=== PATIENT | female | born 1980 | race Caucasian/White ===

== ENCOUNTER 2018-04-04 18:56 | Emergency (ER) | payer OTHER ==
[2018-04-04 19:19] VITALS: BP 132/80
[2018-04-04 19:38] LABS: BILIRUBIN,URINE NEGATIVE (NEGATIVE); GLUCOSE, URINE (UA) NEGATIVE (NEGATIVE); KETONES,URINE (UA) NEGATIVE (NEGATIVE); LEUKOCYTE ESTERASE, URINE SMALL (NEGATIVE); NITRITE,URINE NEGATIVE (NEGATIVE); OCCULT BLOOD,URINE LARGE (NEGATIVE); PROTEIN,URINE 30 mg/dL (NEGATIVE); UROBILINOGEN,URINE 0.2 (NORMAL) E.U./dL (NORMAL)
[2018-04-04 19:52] LABS: CLARITY,URINE HAZY (CLEAR)
[2018-04-04 19:53] LABS: BACTERIA,URINE Many /HPF (None Seen); RBC,URINE TNTC /HPF (0-5); SQUAMOUS EPITHELIAL CELL,UR RARE Squamous (<= Few)
[2018-04-04] MEDS ORDERED: SULFAMETH/TRIMETH DS 800/160 MG TABLET PO STA (20:15)
[2018-04-04] MEDS ORDERED: PHENAZOPYRIDINE 100 MG TABLET PO STA (20:15)
--- NOTE | 2018-04-04 20:18 | ED Physician Documentation ---
PD HPI FEMALE - Stated complaint Stated Complaint: ABD PX - Chief complaint Chief Complaint: UTI - History obtained from History obtained from: Patient - History of Present Illness Timing - onset: How many days ago (3) Timing - details: Gradual onset, Still present Associated symptoms: Pelvic pain. No: Fever Similar symptoms before: Has not had sx before Recently seen: Not recently seen - Additional information Additional information: Patient is a 38 year old female with no significant past medical history who is presenting to the emergency department for dysuria, increased frequency and back pain. patient states that the symptoms have been going on for the last few days and have become progressively worse. Review of Systems Ten Systems: 10 systems reviewed and negative Constitutional: denies: Fever, Chills GI: reports: Abdominal Pain. denies: Nausea, Vomiting : reports: Dysuria, Frequency PD PAST MEDICAL HISTORY - Present Medications Home Medications: Ambulatory Orders Medication Instructions Recorded Confirmed Cyclobenzaprine [Flexeril] 10 04/04/18 Fluconazole [Diflucan] 150 mg PO ONCE #1 tablet 04/04/18 Phenazopyridine HCl [Pyridium] 200 mg PO TID PRN #6 tablet 04/04/18 Sulfamethox/Trimeth 800/160 1 each PO BID #14 tablet 04/04/18 [Bactrim Ds 800/160] traMADol [Ultram] 50 04/04/18 - Allergies Allergies/Adverse Reactions: Allergies Allergy/AdvReac Type Severity Reaction Status Date / Time No Known Drug Allergies Allergy Verified 04/04/18 19:19 PD ED PE NORMAL - Vitals Vital signs reviewed: Yes - General General: Alert and oriented X 3 - HEENT HEENT: Atraumatic - Cardiac Cardiac: RRR - Respiratory Respiratory: No respiratory distress - Abdomen Abdomen: Non distended - Derm Derm: Normal color - Extremities Extremities: No deformity - Neuro Eye Opening: Spontaneous - Psych Psych: Normal mood PD ED PE EXPANDED - Abdomen Abdomen: Tender to palpation, Suprapubic - Back Back: CVA TTP left Results - Vitals Vitals: Vital Signs - 24 hr 04/04/18 19:15 Temperature 36.8 C Heart Rate 90 Respiratory 16 Rate Blood Pressure 132/80 H O2 Saturation 100 Oxygen O2 Source Room air - Labs Labs: Laboratory Tests 04/04/18 04/04/18 Unknown Unknown Urine Color YELLOW Urine Clarity HAZY Urine pH 6.0 Ur Specific [place] 1.010 1.010 Urine Protein 30 H Urine Glucose (UA) NEGATIVE Urine Ketones NEGATIVE Urine Occult Blood LARGE H Urine Nitrite NEGATIVE Urine Bilirubin NEGATIVE Urine Urobilinogen 0.2 (NORMAL) Ur Leukocyte Esterase SMALL H Urine RBC TNTC H Urine WBC >25 H Ur Squamous Epith Cells RARE Squamous Urine Bacteria Many H Ur Microscopic Review INDICATED Urine Culture Comments INDICATED Urine HCG, Qual NEGATIVE PD MEDICAL DECISION MAKING - ED course Complexity details: reviewed old records, reviewed results, re-evaluated patient , considered differential, d/w patient ED course: Patient was seen and examined at bedside. urine was collected and was consistent with cystitis. patient was treated with pyridium and bactrim. patient required no further work up at this time and was stable for discharge with outpatient follow up. Departure - Departure Disposition: 01 Home, Self Care Clinical Impression: Cystitis Condition: Good Instructions: ED UTI Cystitis Female Follow-Up: Perla Leal MD [Primary Care Provider] - Prescriptions: Fluconazole [Diflucan] 150 mg PO ONCE #1 tablet Phenazopyridine HCl [Pyridium] 200 mg PO TID PRN #6 tablet PRN Reason: dysuria Sulfamethox/Trimeth 800/160 [Bactrim Ds 800/160] 1 each PO BID #14 tablet Comments: Your symptoms today are being caused by a urinary tract infection. You had your first dose of antibiotics and will need to be on them for the next week. You should stay well hydrated and increase your fluid intake. You may return to the emergency department at any time for new, worsening or uncontrollable symptoms. Discharge Date/Time: 04/04/18 20:23
[2018-04-04 20:20] LABS: HCG UR QUAL NEGATIVE
== END 2018-04-04 20:23 | disposition home or self-care (01) ==
LOC: ED 18:56
DX: N30.90 Cystitis, unspecified without hematuria (principal)
CPT/HCPCS: 81001; 81025; 87086; 87181; 99282; 99283; A9270; 81003

== ENCOUNTER 2019-08-15 00:52 | Outpatient (CLI) | payer OTHER | END 2019-08-15 00:53 | disposition EMS.NT | LOC: EMS 00:52 | PROVIDERS: ATTEND Surgery | DX: M54.2 Cervicalgia (principal); Y04.8XXA Assault by other bodily force, initial encounter ==

== ENCOUNTER 2019-11-30 14:30 | Emergency (ER) | payer OTHER ==
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
[2019-11-30] MEDS ORDERED: KETOROLAC 30 MG/ML VIAL IVP STA (15:06)
[2019-11-30] MEDS ORDERED: SODIUM CHLORIDE 0.9% 1,000 ML IV ONE (15:06)
[2019-11-30] MEDS ORDERED: diphenhydrAMINE INJ 50 MG/ML VIAL IVP STA (15:07)
[2019-11-30] MEDS ORDERED: METOCLOPRAMIDE 10 MG/2 ML VIAL IVP STA (15:07)
[2019-11-30] MEDS ORDERED: fentaNYL 100 MCG/2 ML VIAL IVP STA (15:08)
[2019-11-30] MEDS ORDERED: CYCLOBENZAPRINE 10 MG TABLET PO STA (15:41)
[2019-11-30 16:00] VITALS: BP 116/76
== END 2019-11-30 16:00 | disposition home or self-care (01) ==
LOC: ED 14:30
DX: G43.909 Migraine, unspecified, not intractable, without status migrainosus (principal); M54.2 Cervicalgia; M25.511 Pain in right shoulder; G89.29 Other chronic pain
CPT/HCPCS: 96361; 96374; 96375; 99281; 99285; A9270; J1200; J2765

== ENCOUNTER 2019-12-05 21:29 | Emergency (ER) | payer OTHER ==
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
[2019-12-05 22:22] LABS: BASOPHILS # (AUTO) 0.1 10^3/uL (0.0-0.1); BASOPHILS % (AUTO) 0.8 %; EOSINOPHILS # (AUTO) 0.1 10^3/uL (0.0-0.7); EOSINOPHILS % (AUTO) 1.6 %; HGB - HEMOGLOBIN 12.8 g/dL (12.0-16.0); LYMPHOCYTES % (AUTO) 27.1 %; MEAN CORPUSCULAR HEMOGLOBIN 30.8 pg (27.0-31.0); MEAN CORPUSCULAR VOLUME 90.6 fL (81.0-99.0); MEAN PLATELET VOLUME 9.1 fL (7.9-10.8); MONOCYTES # (AUTO) 0.5 10^3/uL (0.0-1.0); MONOCYTES % (AUTO) 6.1 %; NEUTROPHILS # (AUTO) 4.7 10^3/uL (1.5-6.6); NEUTROPHILS % (AUTO) 64.1 %; PLT - PLATELET COUNT 353 10^3/uL (130-450); RED BLOOD COUNT 4.16 10^6/uL (4.20-5.40); RED CELL DISTRIBUTION WIDTH 11.9 % (12.0-15.0); WHITE BLOOD COUNT 7.4 x10^3/uL (4.8-10.8)
[2019-12-05] MEDS: HYDROmorphone 2 MG/ML VIAL IVP STA (22:23)
[2019-12-05] MEDS: KETOROLAC 30 MG/ML VIAL IVP STA (22:23)
[2019-12-05] MEDS: PROMETHAZINE INJ 25 MG in SODIUM CHLORIDE 0.9% 50 ML IV STA (22:23)
[2019-12-05] MEDS: SODIUM CHLORIDE 0.9% 1,000 ML IV STA (22:26)
[2019-12-05 22:29] LABS: CALCIUM 9.1 mg/dL (8.5-10.3); CREATININE 0.9 mg/dL (0.4-1.0)
[2019-12-06] MEDS: DEXAMETHASONE 10 MG/ML VIAL IVP STA (00:09)
[2019-12-06] MEDS: oxyCODONE/ACET 5/325 Prepack 4 PO STA (00:11)
[2019-12-06 00:31] VITALS: BP 120/77
== END 2019-12-06 00:30 | disposition home or self-care (01) ==
LOC: ED 21:29
DX: M54.12 Radiculopathy, cervical region (principal); G43.909 Migraine, unspecified, not intractable, without status migrainosus; R11.2 Nausea with vomiting, unspecified; Z87.820 Personal history of traumatic brain injury; Z79.899 Other long term (current) drug therapy
CPT/HCPCS: 36415; 80048; 85025; 96365; 96375; 99284

== ENCOUNTER 2020-04-17 11:48 | Emergency (ER) | payer OTHER ==
--- NOTE | 2020-04-17 12:07 | ED Physician Documentation ---
PD HPI FEMALE - Stated complaint Stated Complaint: FEM - Chief complaint Chief Complaint: UTI - History obtained from History obtained from: Patient - History of Present Illness Timing - onset: How many weeks ago (3) Timing - duration: Weeks (3) Timing - details: Gradual onset, Still present, Waxing and waning Associated symptoms: Dysuria (tried cranberry pills and azo, lots of fluids. Had some improvement at times, but not resolved.). No: Fever, Vaginal discharge, Genital sore/lesion Similar symptoms before: Diagnosis (UTI) Review of Systems Constitutional: denies: Fever, Chills, Myalgias Nose: denies: Rhinorrhea / runny nose, Congestion Throat: denies: Sore throat Respiratory: denies: Cough : reports: Dysuria, Frequency. denies: Discharge, Irregular menses Skin: denies: Rash Musculoskeletal: denies: Back pain PD PAST MEDICAL HISTORY - Past Medical History Cardiovascular: None Respiratory: None Neuro: Migraines Musculoskeletal: Other - Present Medications Home Medications: Ambulatory Orders Medication Instructions Recorded Confirmed Cyclobenzaprine [Flexeril] 10 04/04/18 Fluconazole [Diflucan] 150 mg PO ONCE #1 tablet 04/04/18 Phenazopyridine HCl [Pyridium] 200 mg PO TID PRN #6 tablet 04/04/18 Sulfamethox/Trimeth 800/160 1 each PO BID #14 tablet 04/04/18 [Bactrim Ds 800/160] traMADol [Ultram] 50 04/04/18 Cyclobenzaprine [Flexeril] 10 mg PO TID PRN #20 tablet 11/30/19 Ondansetron Odt [Zofran] 4 mg TL Q6H PRN #10 tablet 11/30/19 Oxycodone HCl/Acetaminophen 1 - 2 each PO Q6H PRN #14 tablet 12/06/19 [Percocet 5-325 mg Tablet] Promethazine [Phenergan] 25 mg PO Q6H PRN #10 tab 12/06/19 Fluconazole [Diflucan] 150 mg PO Q3D #2 tablet 04/17/20 Phenazopyridine HCl [Pyridium] 100 mg PO TID PRN #15 tablet 04/17/20 Sulfamethox/Trimeth 800/160 1 each PO BID #14 tablet 04/17/20 [Bactrim Ds 800/160] - Allergies Allergies/Adverse Reactions: Allergies Allergy/AdvReac Type Severity Reaction Status Date / Time No Known Drug Allergies Allergy Verified 04/17/20 12:00 - Social History Does the pt smoke?: No Smoking Status: Never smoker PD ED PE NORMAL - Vitals Vital signs reviewed: Yes - General General: Alert and oriented X 3, No acute distress, Well developed/nourished - Cardiac Cardiac: RRR, No murmur - Respiratory Respiratory: Clear bilaterally - Abdomen Abdomen: Soft, Non tender, Non distended - Female Female : Deferred - Back Back: No CVA TTP - Derm Derm: Normal color, Warm and dry Results - Vitals Vitals: Vital Signs - 24 hr 04/17/20 04/17/20 11:58 13:04 Temperature 35.7 C L 36.9 C Heart Rate 106 H 87 Respiratory 16 18 Rate Blood Pressure 146/92 H 128/82 H O2 Saturation 99 98 Oxygen O2 Source Room air - Labs Labs: Laboratory Tests 04/17/20 04/17/20 12:00 12:00 Urine Color YELLOW Urine Clarity SL. CLOUDY Urine pH 6.0 Ur Specific [place] <=1.005 <=1.005 Urine Protein NEGATIVE Urine Glucose (UA) NEGATIVE Urine Ketones NEGATIVE Urine Occult Blood MODERATE H Urine Nitrite NEGATIVE Urine Bilirubin NEGATIVE Urine Urobilinogen 0.2 (NORMAL) Ur Leukocyte Esterase LARGE H Urine RBC 6-10 H Urine WBC >25 H Ur Squamous Epith Cells RARE Squamous Urine Bacteria Few Ur Microscopic Review INDICATED Urine Culture Comments INDICATED Urine HCG, Qual NEGATIVE PD MEDICAL DECISION MAKING - ED course Complexity details: reviewed results, considered differential Departure - Departure Disposition: 01 Home, Self Care Clinical Impression: Cystitis, Dysuria Condition: Stable Record reviewed to determine appropriate education?: Yes Instructions: ED UTI Cystitis Female Follow-Up: Bernardino Maldonado MD [Primary Care Provider] - Prescriptions: Fluconazole [Diflucan] 150 mg PO Q3D #2 tablet Phenazopyridine HCl [Pyridium] 100 mg PO TID PRN #15 tablet PRN Reason: Abdominal Pain Sulfamethox/Trimeth 800/160 [Bactrim Ds 800/160] 1 each PO BID #14 tablet Comments: Stay well-hydrated. Tylenol or ibuprofen if needed for discomfort or pains. Bactrim antibiotic twice daily for a week. Phenazopyridine as needed for discomfort of urination. Recheck if not improving well over the next 2 to 3 days. Return if worsening. The urine culture should result in a couple of days and will call you if we need to modify the antibiotic choice based on that. Discharge Date/Time: 04/17/20 13:04
[2020-04-17 12:09] LABS: BILIRUBIN,URINE NEGATIVE (NEGATIVE); GLUCOSE, URINE (UA) NEGATIVE (NEGATIVE); KETONES,URINE (UA) NEGATIVE (NEGATIVE); LEUKOCYTE ESTERASE, URINE LARGE (NEGATIVE); NITRITE,URINE NEGATIVE (NEGATIVE); OCCULT BLOOD,URINE MODERATE (NEGATIVE); PROTEIN,URINE NEGATIVE (NEGATIVE); UROBILINOGEN,URINE 0.2 (NORMAL) E.U./dL (NORMAL)
[2020-04-17 12:11] LABS: CLARITY,URINE SL. CLOUDY (CLEAR)
[2020-04-17 12:21] LABS: HCG UR QUAL NEGATIVE
[2020-04-17 12:23] LABS: BACTERIA,URINE Few /HPF (None Seen); SQUAMOUS EPITHELIAL CELL,UR RARE Squamous (<= Few)
[2020-04-17] MEDS ORDERED: SULFAMETH/TRIMETH DS 800/160 MG TABLET PO STA (12:42)
[2020-04-17] MEDS ORDERED: PHENAZOPYRIDINE 100 MG TABLET PO STA (12:42)
[2020-04-17 13:05] VITALS: BP 128/82
== END 2020-04-17 13:04 | disposition home or self-care (01) ==
LOC: ED 11:48
DX: N30.90 Cystitis, unspecified without hematuria (principal)
CPT/HCPCS: 81001; 81025; 87086; 99283; 99284; A9270; 81003